=== PATIENT | male | born 1960 | race Caucasian/White ===

== ENCOUNTER → 2021-05-26 | Outpatient (CLI) | payer BC ==
[~2021-05-26] MED LIST: BACTRIM DS 8001 TAB PO; LEVOXYL0.025 MG PO; LIPITOR 10MG10 MG PO; NIACIN50 MG PO; NORCO 325 MG-7.1 TAB PO; PERCOCET 325 MG1 TA2 PO; PREDNISONE10 MG PO
== END ==
LOC: COL.RAD 07:22
DX: R63.4 Abnormal weight loss (principal); R10.13 Epigastric pain
CPT/HCPCS: A9541

== ENCOUNTER 2021-09-07 10:11 | Day surgery (SDC) | payer BC ==
[~2021-09-07] VITALS: Ht 185.4 cm; Wt 101.3 kg
[2021-09-07] VITALS (7 sets, daily range): BP systolic 112–145; BP diastolic 78–99; PULSE 55–62; TEMP 97.2–97.7
[2021-09-07] MEDS ORDERED: TIMOPTIC 0.25%-10 OU (11:09)
[2021-09-07] MEDS ORDERED: PROTONIX 40MG T40 MG PO (11:10)
[2021-09-07] MEDS ORDERED: SYNTHROID0.075 MG/T PO (11:10)
[2021-09-07] MEDS ORDERED: TYLENOL 500MG500 MG PO (11:11)
[2021-09-07] MEDS ORDERED: CIALIS5 MG PO (11:12)
[2021-09-07] MEDS ORDERED: DOXYCYCLINE HY100 MG PO (11:13)
[2021-09-07] MEDS ORDERED: XALATAN EYE DROPS OU (11:13)
--- NOTE | 2021-09-07 12:50 | NUR ---
The patient arrived back to [facility] from the operating room at this time. The patient appears very drowsy and is difficult to arouse. The patient has an oral airway in place at this time. Oxygen was placed on the patient at 4L per nasal cannula. The nurse is to remain at the patient's bedside until the airway can be removed.
--- NOTE | 2021-09-07 13:05 | NUR ---
The patient's oral airway has been removed and he appears to be tolerating the oxygen throught nasal cannula well. The patient agrees to try some ice water at this time. The patient's was brought back to be at his bedside. Call light is within reach. The patient has an acewrap dressing in place to his left upper extremity that appears clean, dry and intact. The patient has a simple sling in place due to the nerve block he received pre operatively. Will conitnue to monitor the patient.
--- NOTE | 2021-09-07 13:20 | NUR ---
The patient appears to be tolerating the water well. The patient denies wanting anything further at this time. Vital signs appear stable. Will continue to monitor the patient.
--- NOTE | 2021-09-07 13:35 | NUR ---
The patient requests to try some apple juice at this time.
--- NOTE | 2021-09-07 14:05 | NUR ---
The patient was weaned to room air and appears to be tolerating it well. The patient has drank the apple juice and seems to doing well with it. The patient requests to try some crackers at this time.
--- NOTE | 2021-09-07 14:19 | NUR ---
Dr. Noel was called to clarify the patient's order to remove his dressing and shower on postop day #2. The nurse wanted to know what the patient was to redress the incision with, it was told to her that the patient's has been informed on how to care for the incision post operatively and no further instructions were given to the nurse at this time.
--- NOTE | 2021-09-07 14:35 | NUR ---
The patient ambulated to the bathroom with the stand by assistance of one nurse and his and appeared to tolerate the activity well. The patient's IV to his right hand was removed and a pressure dressing was applied to the site. The patient is dressed and ready to review his discharge paperwork.
--- NOTE | 2021-09-07 14:50 | NUR ---
Discharge instructions were reviewed with the patient and his . They both verbalized understanding and have no questions for the nurse at this time. The patient is dressed and ready to be escorted out.
--- NOTE | 2021-09-07 15:00 | NUR ---
The patient was escorted out via wheelchair to a private vehicle by KELLY Hayward. The patient's belongings and discharge paperwork were sent with him. The patient's is present to drive him home.
== END 2021-09-07 15:00 | disposition home or self-care (01) ==
LOC: SDCO 10:11
DX: L02.414 Cutaneous abscess of left upper limb (principal); I10 Essential (primary) hypertension; K21.9 Gastro-esophageal reflux disease without esophagitis; E07.9 Disorder of thyroid, unspecified; G47.33 Obstructive sleep apnea (adult) (pediatric); Z79.890 Hormone replacement therapy; Z79.899 Other long term (current) drug therapy; Z79.891 Long term (current) use of opiate analgesic; Z99.89 Dependence on other enabling machines and devices; Z80.9 Family history of malignant neoplasm, unspecified
CPT/HCPCS: J0690; J1885; J2250; J2405; J2704; J2795; J3010; J7120